=== PATIENT | female | born 1975 | race Two or more races ===

== ENCOUNTER 2025-03-04 13:33 | Emergency (ER) | payer MEDICAID, OTHER ==
[~2025-03-04] VITALS: Ht 162.6 cm; Wt 93.3 kg
--- NOTE | 2025-03-04 14:25 | ED.PDOC ---
Back pain HPI HPI Comments This is a 49 y/o F, with PMHx of DM, presents to the ED for CC of rib pain. Patient states, she was lifting her grandson yesterday (03/03/25) to carry him when she heard a "pop" to her left ribs. Following trauma, patient c/o left rib pain which worsens with ambulation. At this time patient denies further injury or modifying factors. Chief Complaint: Rib Pain Time Seen by MD: 14:20 Reviewed Notes: Nurses Notes, Medications, Allergies Allergies: Coded Allergies: Penicillins (Verified Allergy, Unknown, 03/04/25) Home Meds Active Scripts Tramadol HCl (Tramadol HCl) 50 Mg Tab, 50 MG PO Q12HP PRN for 10 Days, #20 TAB Prov:TREMAINE ROBBINS MD 03/04/25 Information Source: Patient Mode of Arrival: Ambulatory Timing: Days Duration: Since onset Location of Back pain: Other (left ribs) Severity: Moderate Prehospital treatment: None Onset: Lifing History of: None Modifying Factors: Nothing Associated signs and symptoms: None Past Medical History PAST MEDICAL HISTORY: Denies Surgical History: Denies all surgeries PATTERN FILER History: Denies all PATTERN FILER Hx Family History Family History: Unknown Social History Smoker: Non-Smoker Alcohol: Denies ETOH Use Drugs: Denies Drug Use Lives In: Home Constitutional: denies: chills, diaphoresis, fatigue, fever, malaise, sweats, weakness, others EENTM: denies: blurred vision, double vision, ear bleeding, ear discharge, ear drainage, ear pain, ear ringing, eye pain, eye redness, hearing loss, mouth pain, mouth swelling, nasal discharge, nose bleeding, nose congestion, nose pain, photophobia, tearing, throat pain, throat swelling, voice changes, others Respiratory: denies: cough, hemoptysis, orthopnea, SOB at rest, shortness of breath, SOB with excertion, stridor, wheezing, others Cardiovascular: denies: chest pain, dizzy spells, diaphoresis, Dyspnea on exertion, edema, irregular heart beat, left arm pain, lightheadedness, palpitations, PND, syncope, others Gastrointestinal: denies: abdomen distended, abdominal pain, blood streaked bowels, constipated, diarrhea, dysphagia, difficulty swallowing, hematemesis, melena, nausea, poor appetite, poor fluid intake, rectal bleeding, rectal pain, vomiting, others Genitourinary: denies: abnormal vagina bleeding, burning, dyspareunia, dysuria, flank pain, frequency, hematuria, incontinence, pain, , vagina discharge, urgency, others Neurological: denies: dizziness, fainting, headache, left sided numbness, left sided weakness, numbness, paresthesia, pre-existing deficit, right sided numbness, right sided weakness, seizure, speech problems, tingling, tremors, weakness, others Musculoskeletal: reports: others (left rib pain); denies: back pain, gout, joint pain, joint swelling, muscle pain, muscle stiffness, neck pain Integumetry: denies: bruises, change in color, change in hair/nails, dryness, laceration, lesions, lumps, rash, wounds, others Allergic/Immunocompromised: denies: Difficulty Healing, Frequent Infections, Hives, Itching, others Hematologic/Lymphatic: denies: anemia, blood clots, easy bleeding, easy bruising, swollen glands, others Endocrine: denies: excessive hunger, excessive sweating, excessive thirst, excessive urination, flushing, intolerance to cold, intolerance to heat, u nexplained weight gain, unexplained weight loss, others Psychiatric: denies: anxiety, bipolar disorder, depression, hopeless, panic disorder, schizophrenia, sleepless, suicidal, others All Other Systems: Reviewed and Negative Physical Exam General Appearance: No Apparent Distress HEENT: Normal ENT Inspection, Pharynx Normal, TMs Normal Neck: Full Range of Motion, Non-Tender, Normal, Normal Inspection Respiratory: Chest Non-Tender, Lungs Clear, No Accessory Muscle Use, No Respiratory Distress, Normal Breath Sounds Cardiovascular: No Edema, No JVD, No Murmur, No Gallop, Normal Peripheral Pulses, Regular Rate/Rhythm Breast Exam: Deferred Gastrointestinal: No Organomegaly, Non Tender, No Pulsatile Mass, Normal Bowel Sounds, Soft Genitalia: Deferred Pelvic: Deferred Rectal: Deferred Extremities: No calf tenderness, Normal capillary refill, Normal inspection, Normal range of motion, Non-tender, No pedal edema Musculoskeletal : Location: Left Extremity Location: Chest Apperance: Tenderness: Mild Neurologic: Alert, central sterile supply technician II-XII nml as Tested, No Motor Deficits, Normal Affect, Normal Mood, No Sensory Deficits Cerebellar Function: Normal Reflexes: Normal Skin: Dry, Normal Color, Warm Lymphatic: No Adenopathy Was a procedure done? Was a procedure done?: No Back Pain Differential Dx Differential Diagnosis: Fracture, Strain X-Ray, Labs, Meds, VS Vital Signs Date Time Temp Pulse Resp B/P (MAP) Pulse Ox O2 Delivery O2 Flow Rate FiO2 03/04/25 15:14 98.9 95 16 144/108 (120) 96 98.9 03/04/25 15:14 95 16 96 Room Air 03/04/25 15:13 98.9 03/04/25 13:36 98.6 81 19 160/98 98 98.6 Current Medications Medications (Trade) Dose Ordered Sig/Katrina Route Start Time Stop Time Status Last Admin Acetaminophen (Tylenol Tablet) 650 mg ONCE ONCE PO 03/04/25 14:30 03/04/25 14:31 DC 03/04/25 15:13 The patient was given acetaminophen 650 mg by mouth. The chest x-ray is negative at this time. There is no sign of any fracture or dislocation The patient is being discharged and will follow up with the primary care doctor The patient will return to the emergency department's condition worsens The patient was given a prescription of tramadol Images Reviewed?: Images reviewed and evaluated by me Time of 1ST Reevaluation: 14:50 Reevaluation 1ST: Unchanged Patient Education/Counseling: Diagnosis, Treatment, Prognosis, Need For Follow Up Family Education/Counseling: No Family Present SEPSIS Sepsis Screen Date sepsis recognized/suspect: Mar 04, 2025 Time Sepsis recognized/suspect: 1336 Recent Procedure: No On Antibiotic Therapy: No Respiratory Rate >20: No Heart Rate >90: No Temp<36 C (96.8 F) or >38.3 C: No SBP <90 or MAP <65 mmHG: No New Acute Mental Status Change: No Is the patient on CPAP, BIPAP,: No Physician Orders L Rib X Ray (03/04/25 14:27) Vital Signs Date Time Temp Pulse Resp B/P (MAP) Pulse Ox O2 Delivery O2 Flow Rate FiO2 03/04/25 15:14 98.9 95 16 144/108 (120) 96 98.9 03/04/25 15:14 95 16 96 Room Air 03/04/25 15:13 98.9 03/04/25 13:36 98.6 81 19 160/98 98 98.6 Medications Medications Dose Ordered Sig/Katrina Route Start Time Stop Time Status Last Admin Dose Admin Acetaminophen 650 mg ONCE ONCE PO 03/04/25 14:30 03/04/25 14:31 DC 03/04/25 15:13 Departure 1 Departure Time of Disposition: 15:16 Impression: Primary Impression: Strain of tendon of left half of anterior chest wall Disposition: 01 HOME / SELF CARE / HOMELESS Condition: Fair e-Prescriptions Tramadol HCl (Tramadol HCl) 50 Mg Tab 50 MG PO Q12HP PRN for 10 Days, #20 TAB Prov: TREMAINE ROBBINS MD 03/04/25 Discharged With: Self Critical Care Note Critical Care Time?: No Stability Stability form required: No Heart Score Heart Score: Heart Score Response (Comments) Value History N/A 0 EKG N/A 0 Age N/A 0 Risk Factors N/A 0 Troponin N/A 0 Total 0 I personally scribed for TREMAINE ROBBINS MD ([email or web address]) on 03/04/25 at 14:25. Electronically submitted by Irma Foy ([email or web address]). TREMAINE ROBBINS MD Mar 04, 2025 14:25
--- NOTE | 2025-03-04 15:03 | DVH ---
CLINICAL INDICATION: trauma TECHNIQUE: 5 radiographic views of the left rib were obtained. Comparison: None FINDINGS/IMPRESSION: No pleural effusions No pneumothorax No displaced left rib fractures
[2025-03-04] MEDS: ACETAMINOPHEN 325 MG TAB PO ONE (15:13)
[2025-03-04 15:14] VITALS: BP 144/108; PULSE 95; RESP 16; O2SAT 96
[2025-03-04] MEDS ORDERED: TRAM-626 PO (15:19)
[2025-03-04 15:43] VITALS: TEMP 98.7
== END 2025-03-04 15:44 | disposition home or self-care (01) ==
LOC: ER 13:33
DX: S29.011A Strain of muscle and tendon of front wall of thorax, initial encounter (principal); E11.9 Type 2 diabetes mellitus without complications; Z79.899 Other long term (current) drug therapy; Z88.0 Allergy status to penicillin; X50.9XXA Other and unspecified overexertion or strenuous movements or postures, initial encounter; Y93.89 Activity, other specified; Y92.89 Other specified places as the place of occurrence of the external cause; Y99.8 Other external cause status
CPT/HCPCS: 71101